=== PATIENT | female | born 1995 | race Caucasian/White ===

== ENCOUNTER 2017-10-18 12:28 | Emergency (ER) | payer SELFPAY ==
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
[2017-10-18 17:06] VITALS: BP 113/62
--- NOTE | 2017-10-18 17:10 | RAD ---
HISTORY: Bilateral rib pain, trauma COMPARISONS: None VIEWS: 5, Frontal and oblique views of the left and right hemithorax. FINDINGS: There is no displaced rib fracture or pneumothorax. The visualized lungs are clear. There is a scoliotic curvature of the spine IMPRESSION: NO DISPLACED RIB FRACTURE OR PNEUMOTHORAX.
== END 2017-10-18 17:06 | disposition home or self-care (01) ==
LOC: ED 12:28
DX: S00.91XA Abrasion of unspecified part of head, initial encounter (principal); S00.12XA Contusion of left eyelid and periocular area, initial encounter; R51 Headache; F17.210 Nicotine dependence, cigarettes, uncomplicated; V49.9XXA Car occupant (driver) (passenger) injured in unspecified traffic accident, initial encounter; Y92.9 Unspecified place or not applicable
CPT/HCPCS: 71111; 99281